=== PATIENT | female | born 1995 | race Caucasian/White ===

== ENCOUNTER 2017-07-27 20:31 | Emergency (ER) | payer OTHER ==
[~2017-07-27] VITALS: Ht 162.6 cm; Wt 55.0 kg
[~2017-07-27 20:31] MED LIST: ACYC400T PO; HUMSS SQ; HYDR-3533 PO; Z.0.BCPILL PO
[2017-07-27 20:51] VITALS: BP 122/77; PULSE 83; RESP 16; TEMP 98.3; O2SAT 97
--- NOTE | 2017-07-27 22:10 | PD ---
HPI . Suprapubic pain Chief Complaint: Abdominal Pain Time Seen by Provider: 22:06 Travel History International Travel<30 days: No Contact w/Intl Traveler<30days: No Traveled to known affect area: No History of Present Illness HPI Patient presents with the chief complaint of suprapubic pain for the last 24-48 hours. She describes it as crampy pain like labor pain. Denies any urinary tract symptoms. She denies any vaginal discharge. No exacerbating or relieving factors. Her pain is very mild. PFSH Past Medical History Cancer: No Cardiovascular Problems: No Diabetes: Yes Patient Takes Glucophage: No Diminished Hearing: No Endocrine: Yes (DIAB) Genitourinary: No Immune Disorder: No Musculoskeletal: No Neurologic: No Psychiatric: No Reproductive: No Respiratory: No Immunizations Current: Yes Thyroid Disease: No Tetanus Vaccination: < 5 Years ?: Unknown LMP: control Past Surgical History Surgical History: No Previous Surgery AICD: No Arteriovenous Shunt: No Insulin Pump: Yes Pacemaker: No Other Surgery: No Social History Alcohol Use: Yes (occ) Tobacco Use: No Substance Use: No Allergies-Medications (Allergen,Severity, Reaction): Coded Allergies: No Known Allergies (Unverified , 07/27/17) Reported Meds & Prescriptions Reported Meds & Active Scripts Active Reported Loestrin Fe 1.5/30 (Norethindrone-Ethinyl Estradiol-Fe) 1.5-30 Mg-Mcg Tab 1 Tab PO DAILY Novolog Inj (Insulin Aspart) 1,000 Unit/10 Ml Vial 1.15 Units SQ DIRECTED Review of Systems Except as stated in HPI: all other systems reviewed are Neg General / Constitutional: No: Fever, Chills Genitourinary: Positive: Pelvic Pain, No: Urgency, Frequency, Dysuria, Discharge Physical Exam Narrative GENERAL: Awake and alert and in no distress. SKIN: Warm and dry with no rash or lesions. HEAD: No cephalic/atraumatic. EYES: Pupils are equal. Extraocular movements are intact. ENT: Mucous membranes moist. NECK: Supple. CARDIOVASCULAR: Heart sounds are normal. Regular rate and rhythm. RESPIRATORY: Lungs clear. Respirations nonlabored. ABDOMEN: Bowel sounds positive. Suprapubic tenderness. PELVIC: Whining, physiological appearing discharge in the vaginal vault. No cervical motion tenderness. Os is closed. Uterus is enlarged at about 18 weeks size. MUSCULOSKELETAL: Atraumatic. NEUROLOGICAL: Nonfocal. PSYCHIATRIC: Appropriate mood and affect. Data Data Last Documented VS Vital Signs Date Time Temp Pulse Resp B/P (MAP) Pulse Ox O2 Delivery O2 Flow Rate FiO2 07/27/17 20:51 98.3 83 16 122/77 (92) 97 Orders Orders Wet Prep Profile (07/27/17 22:07) Urinalysis - C+S If Indicated (07/27/17 22:07) Ed Urine Pregnancytest Poc (07/27/17 22:07) Ed Poc Ultrasound (07/27/17 22:27) Gc And Chlamydia Pcr (07/27/17 22:39) Labs Laboratory Tests Test 07/27/17 22:26 Urine Color LIGHT-YELLOW Urine Turbidity HAZY Urine pH 6.5 Urine Specific [place] 1.008 Urine Protein NEG mg/dL Urine Glucose (UA) 300 mg/dL Urine Ketones NEG mg/dL Urine Occult Blood NEG Urine Nitrite NEG Urine Bilirubin NEG Urine Urobilinogen LESS THAN 2.0 MG/DL Urine Leukocyte Esterase NEG Urine RBC 1 /hpf Urine WBC 1 /hpf Urine Squamous Epithelial Cells 12 /hpf Urine Bacteria OCC /hpf Urine Mucus FEW /lpf Microscopic Urinalysis Comment CULT NOT INDICATED Clue Cells (Wet Prep) NONE SEEN Vaginal Trichomonas (Wet Prep) NONE SEEN Vaginal Yeast (Wet Prep) NONE SEEN MDM Medical Decision Making Medical Screen Exam Complete: Yes Emergency Medical Condition: Yes Differential Diagnosis Differential diagnosis of pelvic pain includes but is not limited to UTI, PID, ectopic , spontaneous AB, constipation, viral illness Narrative Course This patient presents with pelvic pain. Urine test is positive. UA neg for infection. Wet prep neg. Procedures Procedure Narrative Emergency Department Pelvic ultrasound was performed with patient consent. The curvilinear probe was used in the transverse and sagittal views within the suprapubic region revealing positive intrauterine . heart rate was appropriate. movement was noted. A 4 chambered heart was seen. Arms , legs, hands, spine, rib cage were all visible. Diagnosis Primary Impression: Qualified Codes: Z3A.18 - 18 weeks gestation of Patient Instructions: Diabetes and (GEN), General Instructions Disposition: 01 DISCHARGE HOME Condition: Stable Veda Leach MD Jul 27, 2017 22:10
[2017-07-27] MEDS ORDERED: NOVOLOGP2 SQ (22:14)
[2017-07-27] MEDS ORDERED: NORE1TAB58 PO (22:14)
[2017-07-27 22:58] LABS: BACTERIA, URINE OCC /hpf; BLOOD, URINE NEG (NEG); COMMENT (UR) CULT NOT INDICATED; CULTURE IF INDICATED CULT NOT INDICATED; GLUCOSE,URINE 300 mg/dL (NEG); KETONE, URINE NEG (NEG); MUCUS URINE FEW /lpf (OCC); NITRITE,URINE NEG (NEG); PH, URINE 6.5 (5.0-8.5); SQUAMOUS EPITHELIAL CELL URINE 12 /hpf (0-5); URINE COLOR LIGHT-YELLOW (YELLW/STRAW)
[2017-07-27 23:51] VITALS: BP 129/62
[2017-07-28 03:11] LABS: CHLAMYDIA PCR NOT DETECTED (NOT DETECT); NEISSERIA PCR NOT DETECTED (NOT DETECT)
== END 2017-07-27 23:52 | disposition home or self-care (01) ==
LOC: NEPD 20:31
DX: O26.92 Pregnancy related conditions, unspecified, second trimester (principal); R10.2 Pelvic and perineal pain; O24.312 Unspecified pre-existing diabetes mellitus in pregnancy, second trimester; E11.9 Type 2 diabetes mellitus without complications; Z3A.18 18 weeks gestation of pregnancy
CPT/HCPCS: 81001; 84703; 87210; 87491; 87591; 99284